=== PATIENT | male | born 1970 | race Caucasian/White ===

== ENCOUNTER 2020-07-09 19:16 | Emergency (ER) | payer SELFPAY ==
--- NOTE | 2020-07-09 19:19 | XR_ITS ---
WS: [id number] XR shoulder RT min 2V* [id number] REASON FOR EXAM: injury FINDINGS: Malalignment of the acromioclavicular joint suggesting a grade 2 separation. No fracture. Adjacent so ft tissue edema. The glenohumeral joint is anatomic. No fracture or other focal bone lesion. No soft tissue abnormalit y. XR/XR shoulder RT min 2V* [id number] IMPRESSION: Acromioclavicular joint separation as above.
[2020-07-09 19:20] VITALS: BP 165/73; PULSE 81; RESP 18; TEMP 36; O2SAT 94; BMI 30.7
--- NOTE | 2020-07-09 19:35 | ED_ITS ---
HPI - Extremity Problem General: Chief complaint: Extremity Injury, Upper Stated complaint: r shoulder injury Time Seen by Provider: 07/09/20 19:19 Source: patient Mode of arrival: ambulatory Limitations: no limitations History of Present Illness: HPI Narrative: 50-year-old male states he is doing donuts on a [employer] [address] and fell off and landed on his right shoulder. He has had right shoulder pain since this happened 1 hour ago. States pain is sharp in nature and rates it a 7 out of 10 and is worse pain with movement. Denies any other injuries denies neck pain denies hitting his head. Associated symptoms: Deny chest pain, fever(s) or rash Review of Systems Const: Denies: fever(s), chills, body aches or change in appetite Eyes: Denies: blurry vision or eye discomfort ENMT: Denies: throat pain or dental pain Card: Denies: chest pain Resp: Denies: dyspnea GI: Denies: abdominal pain, nausea, vomiting or diarrhea : Denies: dysuria Musc: Reports: joint pain Skin/Breast: Denies: rash Neuro: Denies: headache(s) Psych: Denies: depression Isma/Lymph: Denies: easy bruising All/Imm: Denies: urticaria Physical Exam Const: COMMON NORMALS: no acute distress, patient oriented x3 and healthy appearing HENMT: COMMON NORMALS: normocephalic and atraumatic HEAD & SCALP: normocephalic and atraumatic Eye: COMMON NORMALS: Equal, round and reactive pupils present and EOMs intact bilaterally PUPIL: Yes Equal, round and reactive pupils present Neck/C-Spine: COMMON NORMALS: full ROM and supple Chest: COMMONS NORMALS: normal inspection of the chest and normal palpation of entire chest wall Resp: COMMON NORMALS: normal respiratory effort, No retractions, No use of accessory muscles and clear to auscultation bilaterally AUSCULTATION: clear to auscultation bilaterally Cardio: COMMON NORMALS: regular rate, regular rhythm and No murmurs present (Cardio) RATE: regular rate RHYTHM: regular rhythm GI: COMMON NORMALS: Normal to inspection, nondistended, normoactive bowel sounds present, Soft to palpation, non-tender and no masses PALPATION: Yes Soft to palpation Extremity: COMMON NORMALS: full ROM NARRATIVE EXTREMITY EXAM: Tenderness over right shoulder no signs of dislocation distal pulses and sensation are intact Neuro: COMMON NORMALS: patient oriented x3, moves all extremities and no focal motor deficits Psych: COMMON NORMALS: mental status grossly normal, Normal thought process present and cooperative THOUGHT PROCESS: Normal thought process present Skin: COMMON NORMALS: no rashes or lesions noted and no wounds GENERAL SKIN EXAM: no rashes or lesions noted Course Vital Signs: Vital signs: Vital Signs Temperature 96.8 F L 07/09/20 19:20 Pulse Rate 81 07/09/20 19:20 Respiratory Rate 18 07/09/20 19:20 Blood Pressure 165/73 07/09/20 19:20 Pulse Oximetry 94 07/09/20 19:20 MDM - Extremity (Nontraumatic) MDM Narrative: Medical decision making narrative: Len presents here with likely AC separation to his right shoulder he also has a hand fracture left hand of his third fourth metacarpal bones. Patient is placed in a splint splint and a sling as well. He is to follow-up with orthopedics 2 to 4 days return if worsening. He understands agrees to plan Imaging Data^: xr r shoulder: Attestation: I personally reviewed and interpreted this imaging study as follows: My impression: ac seperation xr l hand: Attestation: I personally reviewed and interpreted this imaging study as follows: Radiologist's impression: Fracture to third and fourth metacarpals at the base Discharge Plan Discharge Patient Disposition: Home Clinical Impression: AC separation Qualifiers: Encounter type: initial encounter Laterality: right Qualified Code(s): S43.101A - Unspecified dislocation of right acromioclavicular joint, initial encounter Closed hand fracture Qualifiers: Encounter type: initial encounter Laterality: left Qualified Code(s): S62.92XA - Unspecified fracture of left wrist and hand, initial encounter for closed fracture Condition: Stable Prescriptions: [place] 5-325 mg tablet 1 tab PO Q6H PRN (Reason: pain) Qty: 14 RF: 0 Discharge Orders: Discharge ED (Routine); Ordered 07/09/20 Ordered By: eHrnan Carrillo Referrals: Chito Gamino DO [Physician] - 1-3 days Jese Ramirez MD [Primary Care Provider] - Discharge Diet: Advance as tolerated Discharge Activity: Resume usual activity Patient Instructions: Hand Fracture (ED), Shoulder Sprain (ED) Coding Level of Care Code ED Energy Infrastructure Engineer for Chg Fwd Exam Comprehensive
[2020-07-09] MEDS: HYDROcodone-acetaminophen 7.5-325 mg Tablet 1 TAB PO (19:37)
--- NOTE | 2020-07-09 19:57 | XR_ITS ---
WS: [id number] XR hand LT min 3V* [id number] REASON FOR EXAM: injury FINDINGS: Joint spaces of the left hand are intact. Oblique nondisplaced fractures of the proximal third of the third and fourth metacarpals. No signific ant angulation at the fracture site. XR/XR hand LT min 3V* [id number] IMPRESSION: Left hand fracture as above.
--- NOTE | 2020-07-10 10:30 | DCPLANNER ---
assistant store manager operations had message to schedule a follow up appointment for patient with ortho. assistant store manager operations called the ortho clinic, spoke with Radha, gave clinic patients information. assistant store manager operations was told that patients information would be printed and reviewed. Clinic will call patient with appointment information.
--- NOTE | 2020-07-10 10:37 | DCPLANNER ---
signal manager had message to schedule a follow up appointment for patient with ortho. signal manager called the ortho clinic, spoke with Radha, gave clinic patients information. signal manager was told that patients information would be printed and reviewed. Clinic will call patient with appointment information.
--- NOTE | 2020-07-11 11:47 | DCPLANNER ---
Patient has a follow up appointment scheduled for Saturday, July 11, [address] at 3:[address] Sanders. Clinic will call patient with appointment information.
--- NOTE | 2020-07-14 08:03 | DCPLANNER ---
Patient had a follow up appointment scheduled for 07.11.[address] Sanders - patient did attend appointment.
== END 2020-07-09 20:51 | disposition home or self-care (01) ==
PROVIDERS: Emergency Provider Emergency Medicine; PCP Family Medicine
DX: S43.101A Unspecified dislocation of right acromioclavicular joint, initial encounter (principal); S62.92XA Unspecified fracture of left hand, initial encounter for closed fracture; V86.59XA Driver of other special all-terrain or other off-road motor vehicle injured in nontraffic accident, initial encounter
CPT/HCPCS: 12345; 29125; 73030; 73130; 99281; 99283

== ENCOUNTER 2020-07-11 16:15 | Outpatient (CLI) | payer SELFPAY | END 2020-07-11 16:16 | disposition home or self-care (01) | LOC: SPT 16:15 | PROVIDERS: PCP Family Medicine; Visit Provider Orthopaedic Surgery | DX: Z46.89 Encounter for fitting and adjustment of other specified devices (principal); S62.303D Unspecified fracture of third metacarpal bone, left hand, subsequent encounter for fracture with routine healing; S62.305D Unspecified fracture of fourth metacarpal bone, left hand, subsequent encounter for fracture with routine healing; X58.XXXD Exposure to other specified factors, subsequent encounter | CPT/HCPCS: L3984 ==

== ENCOUNTER → 2020-08-01 10:46 | Outpatient (BNVA) | payer SELFPAY | PROVIDERS: PCP Family Medicine; Visit Provider Orthopaedic Surgery | DX: S62.303A Unspecified fracture of third metacarpal bone, left hand, initial encounter for closed fracture (principal); S62.305A Unspecified fracture of fourth metacarpal bone, left hand, initial encounter for closed fracture; S43.51XA Sprain of right acromioclavicular joint, initial encounter | CPT/HCPCS: 73130 ==